=== PATIENT | male | born 1985 | race Two or more races ===

== ENCOUNTER 2024-07-04 08:23 | Outpatient (OUT) | payer OTHER, SELFPAY ==
--- NOTE | 2024-07-04 09:13 | PM.PRESUREVA ---
History of Present Illness History of Present Illness Chief complaint: Right ureteral stone Narrative: Please see HPI and ROS From Dr. Bertrand on date of service July 02, 2024. PFSH PFSH Medical History (Updated 07/04/24 @ 09:15 by Alondra Rolle) Kidney stones ?N20.0 - Calculus of kidney (ICD-10) Hematuria ?R31.9 - Hematuria, unspecified (ICD-10) Seasonal allergies ?J30.2 - Other seasonal allergic rhinitis (ICD-10) Nausea ?R11.0 - Nausea (ICD-10) Surgical History (Updated 07/04/24 @ 08:57 by Alondra Rolle) History of hernia repair ?Z98.890 - Other specified postprocedural states (ICD-10) ?Z87.19 - Personal history of other diseases of the digestive system (ICD-10) History of wisdom tooth extraction ?K08.409 - Partial loss of teeth, unspecified cause, unspecified class (ICD-10) Family History (Updated 07/04/24 @ 08:57 by Alondra Rolle) Other Family history of DVT Family history of coronary artery disease Family history of diabetes mellitus Family history of hypertension Family history of renal failure Family history of stroke Social History (Updated 07/04/24 @ 08:49 by Alondra Rolle) Within the past year, how often did you have a drink containing alcohol: monthly or less Smoking status: Former smoker Non-prescribed substance use: denies use Previous [facility] history: [employer] Highest level of school completed/degree received: high school graduate Meds Home Medications and Allergies Home Medications ?Medication ?Instructions ?Recorded ?Confirmed ?Type naproxen 500 mg tablet 500 mg PO Q6H PRN pain 07/04/24 07/04/24 History tamsulosin 0.4 mg capsule 0.8 mg PO Q24H 07/04/24 07/04/24 History Allergies Allergy/AdvReac Type Severity Reaction Status Date / Time Penicillins Allergy Mild Hives Verified 07/04/24 08:46 Exam Narrative Exam Narrative: Constitutional: Awake, alert, comfortable, well-appearing, nontoxic, interactive, vital signs as charted Head: Normocephalic, atraumatic Eyes: Conjunctiva and lids normal to inspection, pupils normal ENT: Tympanic membranes pearly lehman, nonerythematous, noninjected, naris patent, posterior oropharynx clear, oral mucosa moist Neck: Supple, normal appearance, normal range of motion, no meningeal signs, no lymphadenopathy, no bruit Respiratory: No respiratory distress, breath sounds clear Cardiovascular: Regular rate and rhythm, strong and regular heart tones Abdomen: Nontender, normal bowel sounds, soft, no CVA tenderness on examination today Musculoskeletal: Normal gait, no swelling or edema Skin: No rashes or induration, no lesions, only visible skin inspected Neuro: No neurological deficits, normal sensation Psychiatric: Oriented ?3, normal affect Assessment and Plan Assessment and Plan (1) Right ureteral stone: Plan Right ESWL, possible cystoscopy, laser, basket get and possible right stent placement this is scheduled with Dr. Bertrand on July 05, 2024
[2024-07-04 10:01] LABS: INR 0.93; Partial Thromboplastin Time 35.9 sec (22.3-36.2); Prothrombin Time 9.9 sec (9.0-11.6)
== END 2024-07-04 08:24 | disposition home or self-care (01) ==
LOC: PST 08:29
PROVIDERS: Visit Provider Urology
DX: Z01.812 Encounter for preprocedural laboratory examination (principal); Z01.818 Encounter for other preprocedural examination; N20.1 Calculus of ureter
CPT/HCPCS: 36415; 85610; 85730; G0463

== ENCOUNTER 2024-07-05 10:34 | Day surgery (SDC) | payer OTHER, SELFPAY ==
[2024-07-04 08:50] VITALS: PULSE 70; TEMP 36.8; O2SAT 98; BMI 30.3
--- NOTE | 2024-07-05 09:45 | XR_ITS ---
The [address] [address] Patient Name: PILLO COLLINS MRN: [id number] date: 1985 Sex: M Assigned Patient Location: [facility] Current Patient Location: [facility] Accession/Order Number: [id number] Exam Date: 07/05/2024 10:45 Report Date: 07/05/2024 11:01 At the request of: ELVIRA CUNNINGHAM Procedure: XR abdomen 1V EXAMINATION: XR abdomen 1V HISTORY: kidney stones COMPARISON: No relevant comparison available. FINDINGS: KIDNEY/URETER - RIGHT: Multiple nephroliths measuring up to 6 mm. 6.7 mm calcification projects of the right L3 transverse process on image 1 KIDNEY/URETER - LEFT: Punctate nephrolith lower pole measuring 3 mm PELVIS: No visible ureteral calcifications. Any visible calcifications favor phleboliths. BOWEL: Unobstructed bowel gas pattern BONES: No acute abnormality. OTHER: Negative. No abnormal gaseous collections. XR/XR abdomen 1V IMPRESSION: Bilateral nephrolithiasis with suspected 6.7 mm right ureterolith Electronically authenticated by: ANDRE MCCABE Date: 07/05/2024 11:01
--- OUTSIDE RECORDS SUMMARY | 2024-07-05 10:52 | XMS_ITS | CCD ---
Author Organization [facility] Care Team Providers Care Supervisor Accounting Clerks Name Role Phone Nitin PAYNE Primary Care Physician Porter Watkins Attending Unavailable Donny BERTRAND Attending Unavailable Porter Watkins Attending Unavailable Donny BERTRAND Attending Unavailable Allergies Allergy Classification Reported Allergen(s) Allergy Type Date of Onset Reaction(s) Facility (5 sources) Penicillins; Translations: [penicillins] Drug allergy [facility] Medications Current Medications Medication Drug Class(es) Dates Sig (Normalized) Sig (Original) acetaminophen 325 mg / HYDROcodone bitartrate 5 mg oral tablet (3 sources) Opioid Agonist Start: 09-25-2015 Hermosa 325 mg-5 mg oral tablet 1 tab(s), Oral, q4hr for pain, 15 tab(s), Refill(s) 0 Start Date: 09/25/15 Status: Ordered clindamycin 300 mg oral capsule (2 sources) Lincosamide Antibacterial Start: 09-23-2022 End: 09-30-2022 take 1 capsule by mouth every six hours clindamycin 300 mg oral cap 300 mg = 1 cap(s), Oral, q6hr, X 7 day(s), # 28 cap(s), Refills(s) 0, Pharmacy: [facility], 180, cm, 09/23/22 16:58:00 EST, Height/Length Dosing, 98, kg, 09/23/22 16:58:00 EST, Weight Dosing Start Date: 09/23/22 Stop Date: 09/30/22 Status: Ordered Start: 04-09-2022 End: 04-16-2022 take 1 capsule by mouth three times daily clindamycin 300 mg oral cap 300 mg = 1 cap(s), Oral, TID, X 7 day(s), # 21 cap(s), Refills(s) 0, Pharmacy: [facility], 186, cm, 04/09/22 23:21:00 EDT, Height/Length Dosing, 102.3, kg, 04/09/22 23:21:00 EDT, Weight Dosing Start Date: 04/09/22 Stop Date: 04/16/22 Status: Ordered indomethacin 25 mg oral capsule (3 sources) Nonsteroidal Anti-inflammatory Drug Start: 10-08-2021 take 1 capsule by mouth three times daily as needed for pain indomethacin 25 mg Cap 25 mg = 1 cap(s), Oral, TID, PRN for gout pain, # 30 cap(s), Refills(s) 0, Pharmacy: [facility], 180, cm, 10/08/21 11:34:00 EDT, Height/Length Dosing, 100, kg, 10/08/21 11:34:00 EDT, Weight Dosing Start Date: 10/08/21 Status: Ordered naproxen 500 mg oral tablet (8 sources) Nonsteroidal Anti-inflammatory Drug Start: 08-28-2021 End: 07-07-2024 take 1 tablet by mouth twice daily as needed for pain naproxen 500 mg Tab 500 mg = 1 tab(s), Oral, BID, PRN Pain, X 7 day(s), # 14 tab(s), Refills(s) 0, Pharmacy: [facility], 184, cm, 06/30/24 19:00:00 EST, Height/Length Dosing, 100.8, kg, 06/30/24 19:00:00 EST, Weight Dosing Start Date: 06/30/24 Stop Date: 07/07/24 Status: Ordered tamsulosin hydrochloride 0.4 mg oral capsule (1 source) alpha-Adrenergic Eve Start: 06-30-2024 take 1 capsule by mouth once daily Flomax 0.4 mg Cap 0.4 mg = 1 cap(s), Oral, Daily, # 10 cap(s), Refills(s) 0, Pharmacy: [facility], 184, cm, 06/30/24 19:00:00 EST, Height/Length Dosing, 100.8, kg, 06/30/24 19:00:00 EST, Weight Dosing Start Date: 06/30/24 Status: Ordered Zofran ODT 4 mg Tab-Dis (4 sources) Start: 06-30-2024 take 1 tablet by mouth every eight hours as needed for nausea Zofran ODT 4 mg Tab-Dis 4 mg = 1 tab(s), Oral, q8hr, PRN Nausea/Vomiting, # 12 tab(s), Refills(s) 0, Pharmacy: [facility], 184, cm, 06/30/24 19:00:00 EST, Height/Length Dosing, 100.8, kg, 06/30/24 19:00:00 EST, Weight Dosing Start Date: 06/30/24 Status: Ordered Start: 09-25-2015 take 1 tablet by courtney th every six hours as needed for nausea Zofran ODT 4 mg Tab-Dis 4 mg = 1 tab(s), Oral, q6hr, PRN Nausea, # 5 tab(s), Refills(s) 0 Start Date: 09/25/15 Status: Ordered Problems Problem Classification Problem Date Documented Da te Episodic/Chronic Calculus of urinary tract (1 source) Ureteric stone; Translations: [Calculus of ureter] Onset: 06-30-2024 Episodic Disorders of teeth and jaw (2 sources) Disorder of teeth AND/OR supporting structures; Translations: [Other specified disorders of teeth and supporting structures] Onset: 04-09-2022 Episodic Other nutritional; endocrine; and metabolic disorders (1 source) Obese class I; Translations: [Body mass index (BMI) 30.0-30.9, adult] Onset: 09-23-2022 Chronic Results Test Name Value Interpretation Reference Range Facility Ambulatory Visit Summaryon 1 09-02-2023 Ambulatory Visit Summary Ambulatory Visit Summary STEPHEN COLLINS :1985 Visit Date:07/02/2024 Ambulatory Visit Instructions Your Diagnosis Ureteral stone with hydronephrosis Kidney stone Flank pain Your Care Team Attending Physician - OCTAVIO HADLEY, Donny Trejo Primary Care Physician - KERRY HADLEY, Nitin This Is Your Medications List acetaminophen-hydroc odone (Hermosa 325 mg-7.5 mg oral tablet) Contact prescribing physician if questions or concerns naproxen (naproxen 500 mg Tab) ondansetron (Zofran ODT 4 mg Tab-Dis) tamsulosin (Flomax 0.4 mg Cap) Procedures Performed Right inguinal hernia. Discharge Vitals Temperature (Oral) 37 ???C Heart Rate (Peripheral) 79 Respiratory Rate 16 Blood Pressure 137/89 Height 184 cm Height 72 in Weight 101.4 kg Weight 223.548 lb BMI 29.95 What to do next You Need to Schedule the Following Appointments Follow Up with OCTAVIO HADLEY, NATALYA Evangelista When: Where: [facility] [address] , [place] [address] [phone] Medications What How Much When Instructions New acetaminophen-hydroc odone (Hermosa 325 mg-7.5 mg oral tablet) 1 Tablets By Mouth Every 4 hours as needed for for pain Pickup at [facility] Unchanged naproxen (naproxen 500 mg Tab) 1 Tablets By Mouth 2 times a day as needed for Pain Duration: 7 Days Contact prescribing physician if questions or concerns Unchanged ondansetron (Zofran ODT 4 mg Tab-Dis) 1 Tablets By Mouth Every 8 hours as needed for Nausea/Vomiting Contact prescribing physician if questions or concerns Unchanged tamsulosin (Flomax 0.4 mg Cap) 1 Capsules By Mouth Every day Contact prescribing physician if questions or concerns Pharmacy Information [facility]: [address] [place], [place] [phone] Allergies penicillins Problems Ongoing - Any problem that you are currently receiving treatment for. Flank pain Kidney stone Patient Survey You may receive a survey via text or e-mail asking about your office visit. Please share your experience with us by completing your survey. We appreciate your feedback and thank you for choosing us for your care. Education Materials Laser Therapy for Kidney Stones, Care After After laser therapy for kidney stones, it is common to have: ??? Pain. ??? A burning feeling when you pee (urinate). ??? Small amounts of blood in your pee (urine). ??? A need to pee a lot. ??? Parts of the kidney stone in your pee. ??? Mild discomfort in your back when you pee. You may have this if you had a small mesh tube (stent) placed during the procedure. Follow these instructions at home: Medicines ??? Take mqag-dkx-eznmwdx and prescription medicines only as told by your health care provider. ??? If you were prescribed antibiotics, take them as told by your provider. Do not stop using the antibiotic even if you start to feel better. ??? Ask your provider if the medicine prescribed to you: ? Requires you to avoid driving or using machinery. ? Can cause constipation. You may need to take these actions to prevent or treat constipation: ? Drink enough fluid to keep your pee pale yellow. ? Take nobd-wly-pajjwyq or prescription medicines. ? Eat foods that are high in fiber, such as beans, whole grains, and fresh fruits and vegetables. ? Limit foods that are high in fat and processed sugars, such as fried or sweet foods. Activity ??? If you were given a sedative during the procedure, it can affect you for several hours. Do not drive or operate machinery until your provider says that it is safe. ??? Return to your normal activities as told by your provider. Ask your provider what activities are safe for you. General instructions ??? Your provider may recommend that you drink a lot of water for a few hours after your procedure. If you have heart or kidney disease, ask your provider how much you should drink. ??? You may be asked to strain your pee to collect any stone pieces that you pass. Your provider may have these pieces tested. ??? Do not take baths, swim, or use a hot tub until your provider approves. Ask your provider if you may take warm baths to soothe the burning. ??? Keep all follow-up visits. If you have a stent, you will need to go back to your provider to have it removed. Your provider may give you more instructions. Make sure you know what you can and cannot do. Contact a health care provider if: ??? You have pain or a burning feeling that lasts for more than 2 days. ??? You feel nauseous. ??? You vomit more and more often. ??? You have trouble peeing. ??? You have pain that gets worse or does not get better with medicine. ??? You have a fever or shaking chills. Get help right away if: ??? You cannot pee, even when your bladder feels full. ??? You faint. ??? You have chest pain, shortness of akira (more content not included)... Normal [facility] Provider Letteron 07-02-2024 Provider Letter Provider Letter July 02, 2024 STEPHEN COLLINS [address] [place] [id number] : 1985 To Whom It May Concern, Please excuse above patient from work. Date of Illness: From: 07/05/24 To: 07/06/24 May Return to Work On: 07/09/24 Restrictions: NONE Comments: Patient is having a surgical procedure on 07/05/[address] Bertrand. Sincerely, [facility] Urology Office/Clinic Noteon 07-02-2024 Urology Office/Clinic Note Urology Office/Clinic Note Chief Complaint ER f/u HPI Staff 38yr old male pt here for ER f/u. Pt was seen on 06/30/24 for right flank pain w/ nausea and vomiting. CT showed 8mm calculus in right proximal ureter & mild right hydronephrosis. Given Flomax 0.4mg daily & naproxen upon discharge. Pt inquiring if a stronger pain medication could be sent in because naproxen does not help the pain when it is severe. Also says he believes stone might have moved to somewhere that is not as severe because pain has improved since this weekend. Pt unable to provide urine sample at this time. Will try before end of appt. Dysuria: denies Incomplete bladder emptying: denies Hematuria: not today, but yesterday thinks he might have had some Frequency: about every 2-3hrs Urgency: denies Nocturia: denies Stream: good stream Leaking: denies Post void dripping: denies Wearing pads/ Depends: denies Urge incontinence: denies Stress incontinence: denies Incontinence without Sensory Awareness: denies Abdominal pain: not now, but was having pain radiating from right flank to right abdomen Flank pain: rates pain today as 2/10 on right side Sexual complaints: _ History of Present Illness Tests reviewed: reviewed ER notes & imaging & labs I have reviewed the previous health record information and history for this patient from external providers. I have reviewed and verified the staff HPI to be accurate for this encounter. Review of Systems PHQ Score Initial Depression Screen Score: 3 SCORE Detailed Depression Screen Score: 1 Total Depression Screen Score: 4 ROS - Provider Constitutional: denies weight loss, denies hot flashes. Eyes: denies eye problems. Gastrointestinal: denies nausea, denies vomiting. Cardiovascular: denies chest pain or angina. Integumentary: no dryness Musculoskeletal: denies musculoskeletal symptoms. ENMT: denies otolaryngeal symptoms. Respiratory: no shortness of breath. Heme/Lymph: denies easy bleeding tendency, denies easy bruising tendency. Psychiatric: no confusion, no anxiety. Genitourinary: See HPI. Physical Exam Vitals & Measurements T: 37 ???C(Oral) HR: 79(Peripheral) RR: 16 BP: 137/89 HT: 72 in HT: 184 cm WT: 101.4 kg WT: 223.548 lb BMI: 29.95 General Appearance: alert, no distress, well nourished, well developed male. Flank Pain: moderate on right. Assessment/Plan Stephen is a 38 yo male new pt here for f/u to ER due to right ureteral stone. 1. Ureteral stone with hydronephrosis (N13.2: Hydronephrosis with renal and ureteral calculous obstruction) [facility] [place] due to R flank pain and H&V. Given Naproxen, Flomax, and Zofran. Renal fxn - BUN 11, Cr 0.9, GFR 11 CT AP wo con 06/30/[place] [facility] [place] 8 [place] calculus in R proximal ureter. Mild R hydro. Additional nonobstructing bilateral renal calculi w/ at least five on R measuring up to 8mm, and at least two small calculi on L measuring up to 3mm. No L hydro. Reviewed imaging results. Has had ongoing right flank pain. Not curently in pain. Taking Naproxen as needed. Was not given pain meds in ER. Does not prefer to proceed with MET. Discussed operative intervention including extracorporeal shockwave lithotripsy vs ureteroscopy with laser lithotripsy/stone basket extraction possible stent. Risks/benefits of each were discussed. If a stent is placed, pt understands this is not permanent and needs to be removed or exchanged within 3 months to prevent encrustation, infection, permanent renal damage and need for more invasive procedures. Recommended to proceed with ESWL first and then ureteroscopy if stone does not pass after ESWL. Pt amenable to proceed. -Take Hermosa 325mg-7.5mg #10 as needed for pain. Rx sent to [facility]. -Increase fluid intake -Strain urine -Will schedule Right ESWL, Cysto/ureteroscopy/l aser/basket and possible R stent placement. The procedure risks, benefits, details and treatment alternatives have been discussed with the patient. These include blood urine, infection, bleeding around the kidney, kidney bruising, inability to break up the stone, need for blood transfusion, stent pain, injury to the ureter, bladder irritation from the stent, flank pain, and need for additional procedures, among others. Full informed consent has been obtained. Will order General anesthesia. 2. Kidney stone (N20.0: Calculus of kidney) Hx of kidney stone passage 4 yrs ago, ~3-4mm. CT AP wo con 06[place]30/[place] [facility] [place] Nonobstructing bilateral renal calculi w/ at least five on R measuring up to 8mm, and at least two small calculi on L measuring up to 3mm. No L hydro. -See #1 3. Flank pain (R10.9: Unspecified abdominal pain) See #1. Follow-up With When Contact Information Donny BERTRAND MD, [facility] [address], [place] [phone] Additional Instructions: sched R ESWL Patient Education Laser Therapy for Kidney Stones, Care After Laser Therapy for Kidney Stones IJazmine, personally scribed for Dr. Moreno (more content not included)... Normal [facility] Comment on above: Result Comment: Elec tronically Signed By: Donny BERTRAND MD\.br\Date and Time Signed: 07/02/24 17:13 EST\.br\Electronically Co-Signed By: Jazmine Lopes\.br\Date and Time Co-Signed: 07/02/24 17:[address] Abdomen/Pelvis w/o Contra sy 07-01-2024 CT Abdomen/Pelvis w/o Contrast Exam Date/Time: 06/30/2024 19:31 EST Reason for Exam: ABDOMINAL PAIN, ACUTE, NONLOCALIZED;Other (please specify) Report IMPRESSION: Mildly obstructing 8 mm calculus right proximal ureter. Additional nonobstructing bilateral renal calculi. HISTORY: Right-sided flank pain. Nausea and vomiting. History of kidney stones. TECHNIQUE: Non-IV contrast imaging of the abdomen and pelvis was performed. Unenhanced imaging is limited for the evaluation of some intra-abdominal and pelvic pathology. Unless otherwise stated, incidental findings in this report do not require further routine follow-up imaging. All CT scans at this facility use dose modulation, iterative reconstruction, and/or weight based dosing when appropriate to reduce radiation dose to as low as reasonably achievable. COMPARISON: 09/25/2015. RESULT: Liver: Unremarkable. Biliary: Gallbladder unremarkable. Pancreas: Unremarkable. Spleen: No splenomegaly. Adrenals: No mass. Kidneys and urinary tract: 8 mm calculus in the right proximal ureter. Mild right hydronephrosis. Additional nonobstructing bilateral renal calculi with at least 5 on the right measuring up to 8 mm, and at least 2 small calculi on the left measuring up to 3 mm. No left hydronephrosis. No suspicious lesions of the unenhanced kidneys. GI Tract: No bowel dilation. Normal appendix. No evidence for diverticulitis. Lymph Nodes: No lymphadenopathy. Mesentery/peritoneum /retroperitoneum: No ascites or mass. Vasculature: No abdominal aortic or iliac artery aneurysm. Pelvis: No significant free fluid. Bladder decompressed. Trace fat left inguinal ring. Report Bones/Soft Tissues: No acute osseous findings. Lower thorax: Unremarkable. Ordering Provider: Porter Watkins FINAL REPORT Dictated: 07/01/2024 9:19 am Bernabe Freedman MD Signed (Electronic Signature): 07/01/2024 9:19 am Signed by: Bernabe Freedman MD Transcribed by: JACQUI Technologist: COREY Technical Comments Rectal Contrast Given? No Oral contrast amount in ml's: 0 Normal [facility] BMPon 06-30-2024 Anion gap [Moles/Vol] 10 mmol/L Normal 6-16 [facility] Comment on above: Performed By: #### 2 [id number] #### [facility] [address] [place] [address] Calcium [Mass/Vol] 9.3 mg/dL Normal 8.9-11.1 [facility] Comment on above: Performed By: #### 2 [id number] #### [facility] [address] [place] [address] Chloride [Moles/Vol] 103 mmol/L Normal 101-111 [facility] Comment on above: Performed By: #### 2 [id number] #### [facility] [address] [place] [address] CO2 [Moles/Vol] 29 mmol/L Normal 21-31 [facility] Comment on above: Performed By: #### 2 [id number] #### [facility] [address] [place] [address] Creatinine [Mass/Vol] 0.9 mg/dL Normal 0.5-1.3 [facility] Comment on above: Performed By: #### 2 [id number] #### [facility] [address] [place] [address] Glucose [Mass/Vol] 102 mg/dL Normal 55-199 [facility] Comment on above: Performed By: #### 2 [id number] #### [facility] [address] [place] [address] Potassium [Moles/Vol] 4.3 mmol/L Normal 3.5-5.3 [facility] Comment on above: Performed By: #### 2 [id number] #### [facility] [address] [place] [address] Sodium [Moles/Vol] 138 mmol/L Normal 135-145 [facility] Comment on above: Performed By: #### 2 [id number] #### [facility] [address] [place] [address] Urea nitrogen [Mass/Vol] 11 mg/dL Normal 5-21 [facility] Comment on above: Performed By: #### 2 [id number] #### [facility] [address] [place] [address] Urea nitrogen/Creatinine [Mass ratio] 12 No Units Normal 10-20 [facility] Comment on above: Performed By: #### 2 850491 #### [facility] [address] [place] [address] CBC w/ Auto Diffon 4 Basophils/100 WBC (Bld) 0.3 % Normal 0.0-2.0 [facility] Comment on above: Performed By: #### 2 [id number] #### [facility] [address] [place] [address] Basophils/Leukocytes Auto (Bld) [Pure # fraction] 0.0 E9/L Normal 0.0-0.2 [facility] Comment on above: Performed By: #### 2 [id number] #### [facility] [address] [place] [address] Eosinophils (Bld) [#/Vol] 0.0 E9/L Normal 0.0-0.5 [facility] Comment on above: Performed By: #### 2 [id number] #### [facility] [address] [place] [address] Eosinophils/100 WBC (Bld) 0.4 % Normal 0.0-8.0 [facility] Comment on above: Performed By: #### 2 246154 #### [facility] [address] [place] [address] Erythrocyte distribution width (RBC) [Ratio] 13.4 % Normal 10.9-14.2 [facility] Comment on above: Performed By: #### 2 [id number] #### [facility] [address] [place] [address] Hematocrit (Bld) [Volume fraction] 44.5 % Normal 37.7-49.0 [facility] Comment on above: Performed By: #### 2 [id number] #### [facility] [address] [place] [address] Hemoglobin (Bld) [Mass/Vol] 15.8 g/dL Normal 13.5-17.5 [facility] Comment on above: Performed By: #### 2 227062 #### [facility] [address] [place] [address] Lymphocytes (Bld) [#/Vol] 0.8 E9/L Low 1.0-4.0 [facility] Comment on above: Performed By: #### 2 [id number] #### [facility] [address] [place] [address] Lymphocytes/100 WBC (Bld) 7.9 % Low 14.0-50.0 [facility] Comment on above: Performed By: #### 2 [id number] #### [facility] [address] [place] [address] MCH (RBC) [Entitic mass] 30.4 pg Normal 27.0-34.0 [facility] Comment on above: Performed By: #### 2 [id number] #### [facility] [address] [place] [address] MCHC (RBC) [Mass/Vol] 35.6 g/dL Normal 31.4-36.0 [facility] Comment on above: Performed By: #### 2 684131 #### [facility] [address] [place] [address] MCV (RBC) [Entitic vol] 85.6 fL Normal 80.0-100.0 [facility] Comment on above: Performed By: #### 2 766189 #### [facility] [address] [place] [address] Monocytes (Bld) [#/Vol] 0.6 E9/L Normal 0.2-1.0 [facility] Comment on above: Performed By: #### 2 072715 #### [facility] [address] [place] [address] Neutrophils (Bld) [#/Vol] 8.4 E9/L High 2.0-7.5 [facility] Comment on above: Performed By: #### 2 [id number] #### [facility] [address] [place] [address] Neutrophils/100 WBC (Bld) 85.3 % High 36.0-75.0 [facility] Comment on above: Performed By: #### 2 557000 #### [facility] [address] [place] [address] Platelet mean volume (Bld) [Entitic vol] 9.1 fL Normal 6.4-10.8 [facility] Comment on above: Performed By: #### 2 [id number] #### [facility] [address] [place] [address] Platelets (Bld) [#/Vol] 187.0 E9/L Normal 150.0-500.0 [facility] Comment on above: Performed By: #### 2 [id number] #### [facility] [address] [place] [address] RBC (Bld) [#/Vol] 5.2 E12/L Normal 4.3-5.9 [facility] Comment on above: Performed By: #### 2 [id number] #### [facility] [address] [place] [address] WBC corrected for nucl RBC Auto (Bld) [#/Vol] 9.8 E9/L Normal 4.0-11.0 [facility] Comment on above: Performed By: #### 2 [id number] #### [facility] [address] [place] [address] CHEMISTRYOrdered By: SYSTEM SYSTEM on 06-30-2024 Albumin [Mass/Vol] 4.3 g/dL Normal 3.3 - 5.0 gm/dL [facility] Albumin/Globulin [Mass ratio] 1.7 {ratio} Normal 1.1 - 2.2 [facility] ALP [Catalytic activity/Vol] 61 [iU]/d Normal 21 - 98 Int._Unit/L [facility] ALT No additional P-5'-P [Catalytic activity/Vol] 17 [iU]/d Normal 6 - 46 Int._Unit/L [facility] Anion gap [Moles/Vol] 10 mmol/L Normal 6 - 16 mEq/L R [facility] Chem AST [Catalytic activity/Vol] 13 [iU]/d Normal 5 - 43 Int._Unit/L [facility] Bilirubin [Mass/Vol] 0.5 mg/dL Normal 0.0 - 1 .1 mg/dL [facility] Bilirubin.direct [Mass/Vol] 0.1 mg/dL Normal 0.0 - 0.4 mg/dL [facility] Bilirubin.indirect [Mass or moles/Vol] 0.4 mg/dL Normal 0.1 - 0.9 mg/dL [facility] Calcium [Mass/Vol] 9.3 mg/dL Normal 8.9 - 11. 1 mg/dL [facility] Chloride [Moles/Vol] 103 mmol/L Normal 101 - 1 11 mmol/L [facility] CO2 [Moles/Vol] 29 mmol/L Normal 21 - 31 mmol/L [facility] Creatinine [Mass/Vol] 0.9 mg/dL Normal 0.5 - 1.3 mg/dL [facility] eGFR 110 mL/min/1.73 m2 Normal >=59mL/mi n/1. 73 m2 [facility] Globulin (S) [Mass/Vol] 2.6 g/dL Normal 1.4 - 4.0 gm/dL [facility] Glucose [Mass/Vol] 102 mg/dL Normal 55 - 199 mg/dL [facility] Lipase [Catalytic activity/Vol] 29 U/L Normal 13 - 58 unit/L [facility] Potassium [Moles/Vol] 4.3 mmol/L Normal 3.5 - 5.3 mmol/L [facility] Protein [Mass/Vol] 6.9 g/dL Normal 6.0 - 7.8 gm/dL [facility] Sodium [Moles/Vol] 138 mmol/L Normal 135 - 145 mmol/L Remisol Chem Urea nitrogen [Mass/Vol] 11 mg/dL Normal 5 - 21 mg/dL Remisol Chem Urea nitrogen/Creatinine [Mass ratio] 12 mg/mg Normal 10 - 20 Remisol Chem ED Clinical Summaryon 2023 ED Clinical Summary ED Clinical Summary [place] [address] ED Clinical Summary Person Information Name: STEPHEN COLLINS Annabelle/[facility] Age: 38 Years : 1985 Sex: Male Language: Citizen Of [place] PCP: Nitin PAYNE MD Marital Status: Visit Id: Visit Reason: Vomiting; Nausea; Flank pain; LOWER BACK PAIN Speciality: Acuity: 3 Enc Type: Emergency Med Service: Emergency Arrival: 06/30/2024 18:47:09 Discharge: 06/30/2024 22:33:24 LOS: 000 03:46 Checkin: 06/30/2024 18:47:09 Checkout: 06/30/2024 22:33:24 Dispo Type: Home (Routine DC) EVENTS: Event Name Event Status Request Date/Time Start Date/Time Complete Date/Time Arrive Complete 06/30/2024 18:47:09 06/30/2024 18:47:09 06/30/2024 18:47:09 Document Home Meds Request 06/30/2024 18:47:09 Triage Complete 06/30/2024 18:47:09 06/30/2024 19:00:10 06/30/2024 19:00:10 Bed Assign Complete 06/30/2024 19:00:49 06/30/2024 19:00:49 06/30/2024 19:00:49 Dr Exam Complete 06/30/2024 19:00:49 06/30/2024 19:03:13 06/30/2024 19:03:13 RN Exam Complete 06/30/2024 19:00:49 06/30/2024 21:51:50 06/30/2024 21:51:50 CT Complete 06/30/2024 19:03:08 06/30/2024 19:10:29 06/30/2024 19:31:37 Pending Labs Complete 06/30/2024 19:03:08 06/30/2024 19:35:08 06/30/2024 20:06:48 Lab Complete 06/30/2024 19:03:08 06/30/2024 20:06:48 Patient Care Request 06/30/2024 19:03:08 Registration Complete 06/30/2024 19:03:13 06/30/2024 19:43:32 06/30/2024 19:43:32 Pending Labs Complete 06/30/2024 19:39:11 06/30/2024 19:39:11 06/30/2024 20:06:48 Lab Complete 06/30/2024 19:39:11 06/30/2024 19:39:11 06/30/2024 20:06:48 Meds Admin Complete 06/30/2024 19:41:00 06/30/2024 20:08:12 Reg Complete Request 06/30/2024 19:43:32 Reg Bed Request Complete 06/30/2024 19:43:32 06/30/2024 19:43:32 06/30/2024 19:43:32 Discharge Complete 06/30/2024 22:11:30 06/30/2024 22:33:28 06/30/2024 22:33:28 Transfer Complete 06/30/2024 22:33:28 06/30/2024 22:33:28 06/30/2024 22:33:28 ADDRESS: [address] [place] [id number] PHYS DOC NOTES: MEDICAL INFORMATION: Prescriptions Given: New Medications [facility], [address] [place], [place] [id number], [phone] tamsulosin (Flomax 0.4 mg Cap) 1 Capsules By Mouth every day. Refills: 0. Medications to Continue Taking That Have Changed [facility], [address] [place], [place] [id number], [phone] START: naproxen (naproxen 500 mg Tab) 1 Tablets By Mouth 2 times a day as needed Pain for 7 Days. Refills: 0. START: ondansetron (Zofran ODT 4 mg Tab-Dis) 1 Tablets By Mouth every 8 hours as needed Nausea/Vomiting. Refills: 0. Other Medications START: naproxen (Naprosyn 500 mg Tab) 1 Tablets By Mouth 2 times a day. Refills: 0. START: naproxen (naproxen 500 mg Tab) 1 Tablets By Mouth 2 times a day as needed for pain. Refills: 0. START: ondansetron (Zofran ODT 4 mg Tab-Dis) 1 Tablets By Mouth every 6 hours as needed Nausea. Refills: 0. Medications to Continue with No Changes Other Medications acetaminophen-hydroc odone (Hermosa 325 mg-5 mg oral tablet) 1 Tablets By Mouth every 4 hours as needed for pain. Refills: 0. indomethacin (indomethacin 25 mg Cap) 1 Capsules By Mouth 3 times a day as needed for gout pain. Refills: 0. PATIENT EDUCATION INFORMATION: Instructions: Kidney Stones Follow up: With: Address: When: Donny [address]N [address], [address], [facility] [address] [place] [address] Business (1) [facility], [address] [place] [address] Business (1) Comments: Call for diagnosis based follow up With: Address: When: Nitin PAYNE [address] [place] [address] Business (1) In 3 days DIAGNOSIS: Ureterolithiasis Normal [facility] ED Note-Physicianon 06-30-20 ED Note-Physician ED Note-Physician Basic Information Time Seen: June Porter Eileen 06/30/2024 19:03 Chief Complaint pt presents ith c/o R sided flank pain, nausea and vomiting. history of kidney stones, denies any urinary sympmtoms. pt states symptoms began around 1630 today History of Present Illness HPI: Patient is a 38-year-old male with past medical history of previous kidney stones who presents the ED for right-sided flank pain. Patient states this started around 1630 this evening and has been waxing and waning since that time. He states that he has had some associated nausea and 1 episode of vomiting with this. He states that it feels somewhat like the last time he had a kidney stone 4 years ago. He denies any change in bowel movements. He denies fever or chills. He took gxka-skx-opvfcov ibuprofen earlier in the day. ROS: Pertinent review of systems conducted and is negative except as noted above. Physical exam: General: nontoxic appearing and in no distress HEENT: Mucous membranes moist Neuro: awake and alert Neck: supple, trachea midline Card: Heart regular rate and rhythm no murmur Resp: Lungs clear to auscultation no wheeze or rhonchi Abd: Soft and nondistended. No tenderness to palpation with no rebound or guarding. Right CVA tenderness. Ext: No gross deformity or edema Physical Exam Vitals & Measurements T: 36.5 ???C(Oral) HR: 61(Peripheral) RR: 18 BP: 157/92 SpO2: 100% HT: 184 cm WT: 100.8 kg BMI: 29.77 Medical Decision Making MEDICAL DECISION MAKING Number and Complexity of Problems Differential Diagnosis: [] [facility] Data External documents reviewed: N/A My EKG interpretation: Noted in chart if applicable My CT interpretation: N/A My X-ray interpretation: Noted in chart if applicable My Ultrasound interpretation: N/A Decision rules/scores evaluated: N/A Discussed with: N/A Treatment and Disposition ED Course: Patient is nontoxic-appearing no distress. He does have focal CVA tenderness on exam. We will obtain a CT of the abdomen and pelvis as well as blood work and urinalysis. Patient was given dose of Toradol and Zofran for symptoms. Work is overall reassuring. Urine shows blood but no signs of acute infection. CT of the abdomen pelvis shows a 8 mm calculus in the right proximal ureter with mild right hydronephrosis. On repeat exam the patient has significant improvement of his symptoms. We discussed the results of his workup. We discussed the plan of discharge with prescriptions for naproxen, Flomax, and Zofran as needed. We will give him follow-up with Dr. Bertrand who is on-call for urology will call first thing on Tuesday morning to get the next fillable appointment. Discussed return cautions. Patient states understanding agreement with plan was discharged in stable condition. Shared decision making: As above Code status: N/A Assessment/Plan Ureterolithiasis (N20.1: Calculus of ureter) Orders: ketorolac, 15 mg = 1 mL, Injection, IV Push, Once, Stop date 06/30/24 19:40:00 EST, STAT, Start date 06/30/24 19:40:00 EST, 06/30/24 19:40:00 EST naproxen, 500 mg = 1 tab(s), Oral, BID, PRN Pain, X 7 day(s), # 14 tab(s), Refills(s) 0, Pharmacy: [facility], 184, cm, 06/30/24 19:00:00 EST, Height/Length Dosing, 100.8, kg, 06/30/24 19:00:00 EST, Weight Dosing ondansetron, 4 mg = 2 mL, Injection, IV Push, Once, Stop date 06/30/24 19:40:00 EST, STAT, Start date 06/30/24 19:40:00 EST, 06/30/24 19:40:00 EST ondansetron, 4 mg = 1 tab(s), Oral, q8hr, PRN Nausea/Vomiting, # 12 tab(s), Refills(s) 0, Pharmacy: [facility], 184, cm, 06/30/24 19:00:00 EST, Height/Length Dosing, 100.8, kg, 06/30/24 19:00:00 EST, Weight Dosing tamsulosin, 0.4 mg = 1 cap(s), Oral, Daily, # 10 cap(s), Refills(s) 0, Pharmacy: [facility], 184, cm, 06/30/24 19:00:00 EST, Height/Length Dosing, 100.8, kg, 06/30/24 19:00:00 EST, Weight Dosing Basic Metabolic Panel CBC w/ Auto Diff CT Abdomen/Pelvis w/o Contrast eGFR Hepatic Function Panel Lipase Level Saline Lock Insert UA with Cult Rflx Medications Administered Given ketorolac 15 mg/mL Inj, 15 mg, IV Push Zofran 4 mg/2 mL Injection, 4 mg, IV Push Disposition Plan Discharge Prescription List Prescriptions Flomax 0.4 mg Cap, 0.4 mg= 1 cap(s), Oral, Daily naproxen 500 mg Tab, 500 mg= 1 tab(s), Oral, BID, PRN Zofran ODT 4 mg Tab-Dis, 4 mg= 1 tab(s), Oral, q8hr, PRN Follow-up With When Contact Information Donny BERTRAND [address] [place] [phone]- Business (1) [facility] [address] [place] [address]- Business (1) Additional Instructions: Call for diagnosis based follow up Nitin PAYNE In 3 days [address] [place] [address]- Business (1) Additional Instructions: Patient Education Kidney Stones Problem List/Past Medical History Ongoing No chronic problems Historical No qualifying data Procedure/Surgical (more content not included)... Normal [facility] Comment on above: Result Comment: Elec tronically Signed By: Porter Watkins DO\.br\Date and Time Signed: 06/30/24 22:13 EST ED Patient Summaryon 024 ED Patient Summary ED Patient Summary [address] [address] Patient Discharge Instructions Person Information Name: STEPHEN COLLINS Age: 38 Years Arrival Date: 06/30/2024 18:47:09 Discharge Diagnosis: Ureterolithiasis Primary Care Physician: Nitin PAYNE MD Provider Information Primary Provider: Porter Watkins DO [employer] Dean:None The exam and treatment you received in the Emergency Department were for an urgent problem and are not intended as complete care. It is important that you follow up with a doctor, nurse practitioner, or physician???s credentialing assistant for ongoing care. If your symptoms become worse or you do not improve as expected and you are unable to reach your usual health care provider, you should return to the Emergency Department. We are available 24 hours a day. STEPHEN COLLINS has been given the following list of patient education materials, prescriptions and follow-up instructions: Follow-up Instructions: With: Address: When: Donny BERTRAND [address] [place] [address], [address], [address] [address] Business (1) [facility], [address] [place] [address] Business (1) Comments: Call for diagnosis based follow up With: Address: When: Nitin PAYNE [address] [place] [address] Business (1) In 3 days In the event that this physician does not participate in your insurance network, please consult with your insurance company to find a nearby participating provider. Patient Education Materials: Kidney Stones A MESSAGE TO ALL PATIENTS REGARDING OPIOIDS PRESCRIPTION OPIOIDS: WHAT YOU NEED TO KNOW Prescription opioids can be used to help relieve htsllbxh-lq-kpljln pain and are often prescribed following a surgery or injury, or for certain health conditions. These medications can be an important part of the treatment but also come with serious risks. It is important to work with your healthcare provider to make sure you are getting the safest, most effective care. WHAT ARE THE RISKS AND SIDE EFFECTS OF OPIOID USE? Prescription opioids carry serious risks of addiction and overdose, especially with prolonged use. An opioid overdose, often marked by slowed breathing, can cause sudden . The use of prescription opioids can have a number of side effects as well, even when taken as directed: ??? Tolerance???meaning you might need to take more of the medication for the same pain relief ??? Physical dependence???meaning you have symptoms of withdrawal when a medication is stopped ??? Increased sensitivity to pain ??? Constipation ??? Nausea, vomiting, and dry mouth ??? Sleepiness and dizziness ??? Confusion ??? Depression ??? Low levels of testosterone that can result in lower sex drive, energy, and strength ??? Itching and sweating RISKS ARE GREATER WITH: ??? History of drug misuse, substance use disorder, or overdose ??? Mental health conditions (such as depression or anxiety) ??? Sleep apnea ??? Older age (65 years and older) ??? Avoid alcohol while taking prescription opioids. Also, unless specifically advised by your health care provider, medications to avoid include: ??? Benzodiazepines (such as Xanax or Valium) ??? Muscle relaxants (such as Soma or Flexeril) ??? Hypnotics (such as Ambien or Lunesta) ??? Other prescription opioids KNOW YOUR OPTIONS Talk to your health care provider about ways to manage your pain that don???t involve prescription opioids. Some of these options may actually work better and have fewer risks and side effects. Options may include: ??? Pain relievers such as acetaminophen, ibuprofen, and naproxen ??? Some medication that are also used for depression or seizures ??? Physical therapy and exercise ??? Cognitive behavioral therapy, a psychological, goal-directed approach, in which patients learn how to modify physical, behavioral, and emotional triggers of pain and stress. IF YOU ARE PRESCRIBED OPIOIDS FOR PAIN: ??? Never take opioids in greater amounts or more often than prescribed. ??? Follow up with your primary health care provider. o Work together to create a plan on how to manage your pain. o Talk about ways to help manage your pain that don???t involve prescription opioids. o Talk about any and all concerns and side effects. ??? Help prevent misuse and abuse o Never sell or share prescription opioids. o Never use another person???s prescription opioids. ??? Store prescription opioids in a secure place and out of reach of others (this may include visitors, children, friends, and family). ??? Safely dispose of unused prescription opioids: Find your community drug take-back program or your pharmacy mail-back program, or flush them down the toilet, following guidance from the Food and Drug Admin (more content not included)... Normal [facility] HEMATOLOGYOrdered By: SYSTEM SYSTEM on 06-30-2024 Basophils/100 WBC (Bld) 0.3 % Normal 0.0 - 2.0 % Remisol Heme Basophils/Leukocytes Auto (Bld) [Pure # fraction] 0.0 E9/L Normal 0.0 - 0.2 E9/L Remisol Heme Eosinophils (Bld) [#/Vol] 0.0 E9/L Normal 0.0 - 0.5 E9/L Remisol Heme Eosinophils/100 WBC (Bld) 0.4 % Normal 0.0 - 8.0 % Remisol Heme Erythrocyte distribution width (RBC) [Ratio] 13.4 % Normal 10.9 - 14.2 % Remisol Heme Hematocrit (Bld) [Volume fraction] 44.5 % Normal 37.7 - 49.0 % Remisol Heme Hemoglobin (Bld) [Mass/Vol] 15.8 g/dL Normal 13.5 - 17.5 gm/dL Remisol Heme Lymphocytes (Bld) [#/Vol] 0.8 E9/L Low 1.0 - 4.0 E9/L Remisol Heme Lymphocytes/100 WBC (Bld) 7.9 % Low 14.0 - 50.0 % Remisol Heme MCH (RBC) [Entitic mass] 30.4 pg Normal 27.0 - 34.0 pg Remisol Heme MCHC (RBC) [Mass/Vol] 35.6 g/dL Normal 31.4 - 36.0 gm/dL Remisol Heme MCV (RBC) [Entitic vol] 85.6 fL Normal 80.0 - 100.0 fL Remisol Heme Monocytes (Bld) [#/Vol] 0.6 E9/L Normal 0.2 - 1.0 E9/L Remisol Heme Monocytes/100 WBC (Bld) 6.1 % Normal 4.0 - 14.0 % Remisol Heme Neutrophils (Bld) [#/Vol] 8.4 E9/L High 2.0 - 7.5 E9/L Remisol Heme Neutrophils/100 WBC (Bld) 85.3 % High 36.0 - 75.0 % Remisol Heme Platelet mean volume (Bld) [Entitic vol] 9.1 fL Normal 6.4 - 10.8 fL Remisol Heme Platelets (Bld) [#/Vol] 187.0 E9/L Normal 150.0 - 500.0 E9/L Remisol Heme RBC (Bld) [#/Vol] 5.2 E12/L Normal 4.3 - 5.9 E12/L Rem[facility]e WBC corrected for nucl RBC Auto (Bld) [#/Vol] 9.8 E9/L Normal 4.0 - 11.0 E9/L Remisol Heme Hep Func Panelon 06-30-2024 Albumin [Mass/Vol] 4.3 g/dL Normal 3.3-5.0 [facility] Comment on above: Performed By: #### 2 [id number] #### [facility] [address] [place] [address] Albumin/Globulin (S) [Mass conc ratio] 1.7 Normal 1.1-2.2 [facility] Comment on above: Performed By: #### 2 [id number] #### [facility] [address] [place] [address] ALP [Catalytic activity/Vol] 61 Int._Unit/L Normal 21-98 [facility] Comment on above: Performed By: #### 2 [id number] #### [facility] [address] [place] [address] ALT No additional P-5'-P [Catalytic activity/Vol] 17 Int._Unit/L Normal 6-46 [facility] Comment on above: Performed By: #### 2 [id number] #### [facility] [address] [place] [address] AST [Catalytic activity/Vol] 13 Int._Unit/L Normal 5-43 [facility] Comment on above: Performed By: #### 2 [id number] #### [facility] [address] [place] [address] Bilirubin [Mass/Vol] 0.5 mg/dL Normal 0.0-1.1 [facility] Comment on above: Performed By: #### 2 [id number] #### [facility] [address] [place] [address] Bilirubin.direct [Mass/Vol] 0.1 mg/dL Normal 0.0-0.4 [facility] Comment on above: Performed By: #### 2 [id number] #### [facility] [address] [place] [address] Bilirubin.indirect [Mass or moles/Vol] 0.4 mg/dL Normal 0.1-0.9 [facility] Comment on above: Performed By: #### 2 [id number] #### [facility] [address] [place] [address] Globulin (S) [Mass/Vol] 2.6 g/dL Normal 1.4-4.0 [facility] Comment on above: Performed By: #### 2 [id number] #### [facility] [address] [place] [address] Protein [Mass/Vol] 6.9 g/dL Normal 6.0-7.8 [facility] Comment on above: Performed By: #### 2 [id number] #### [facility] [address] [place] [address] Lipase Levelon 06-30-2024 Lipase [Catalytic activity/Vol] 29 U/L Normal 13-58 [facility] Comment on above: Performed By: #### 2 [id number] #### [facility] [address] [place] [address] UA with Cult Rflxon 06-30-20 24 Bilirubin Ql (U) Negative Normal Negative [facility] Comment on above: Performed By: #### 4 [id number] #### [facility] [address] [place] [address] Clarity (U) Turbid Abnormal Clear [facility] Comment on above: Performed By: #### 4 [id number] #### [facility] [address] [place] [address] Color (U) Light-[place] Abnormal Yellow [facility] Comment on above: Result Comment: Micr oscopic readings are only performed on those samples that meet specific criteria set forth by [facility]. Performed By: #### 4 [id number] #### [facility] [address] [place] [address] Glucose Ql (U) Negative Normal Negative [facility] Comment on above: Performed By: #### 4 [id number] #### [facility] [address] [place] [address] Hemoglobin Auto test strip (U) [Mass/Vol] 3+ mg/dL Abnormal Negative [facility] Comment on above: Performed By: #### 4 [id number] #### [facility] [address] [place] [address] Ketones Auto test strip Ql (U) Negative Normal Negative [facility] Comment on above: Performed By: #### 4 [id number] #### [facility] [address] [place] [address] Leukocyte esterase Auto test strip Ql (U) Negative Normal Negative [facility] Comment on above: Performed By: #### 4 [id number] #### [facility] [address] [place] [address] Mucus Auto Ql (U) 1+ CD:[id number] Abnormal Negative [facility] Comment on above: Performed By: #### 4 [id number] #### [facility] [address] [place] [address] Nitrite Auto test strip Ql (U) Negative Normal Negative [facility] Comment on above: Performed By: #### 4 [id number] #### [facility] [address] [place] [address] pH (U) 8.0 [pH] Invalid Interpretation Code 5.0-9.0 [facility] Comment on above: Performed By: #### 4 [id number] #### [facility] [address] [place] [address] Protein Ql (U) 1+ mg/dL Abnormal Negative [facility] Comment on above: Performed By: #### 4 [id number] #### [facility] [address] [place] [address] RBC Ql (U) >75 Abnormal 0-3 [facility] Comment on above: Performed By: #### 4 [id number] #### [facility] [address] [place] [id number] Specific gravity (U) [Rel density] 1.018 Invalid Interpretation Code 1.005-1.030 [facility] Comment on above: Performed By: #### 4 [id number] #### [facility] [address] [place], [place] [id number] Urobilinogen (U) [Mass/Vol] Negative Normal Negative [facility] Comment on above: Performed By: #### 4 [id number] #### [facility] [address] [place], [place] [id number] WBC Auto (Urine sed) [#/Area] 0-5 Normal 0-5 [facility] Comment on above: Performed By: #### 4 [id number] #### [facility] [address] [place], [place] [id number] Type of Urine collection method Clean Catch Normal [facility] Comment on above: Performed By: #### 4 [id number] #### [facility] [address] [place], [place] [id number] URINALYSISOrdered By: SYSTEM SYSTEM on 06-30-2024 Bilirubin Ql (U) Negative Normal Negativemg/dL [facility] [place] Auto SS Clarity (U) Turbid *ABN* (06/30/24 7:31 PM) Invalid Interpretation Code Clear [facility] Auto SS Color (U) Light-[place] 1 *ABN* (06/30/24 7:31 PM) Invalid Interpretation Code Yellow [facility] Auto SS Comment on above: Interpretive Data: M icroscopic readings are only performed on those samples that meet specific criteria set forth by [facility]. Glucose Ql (U) Negative Normal Negativemg/dL [facility]A Auto SS Hemoglobin Auto test strip (U) [Mass/Vol] 3+ mg/dL Invalid Interpretation Code Negativemg/dL [facility] UA Auto SS Ketones Auto test strip Ql (U) Negative Normal Negativemg/dL [facility] UA Auto SS Leukocyte esterase Auto test strip Ql (U) Negative Normal NegativeLeu/u L [facility] UA Auto SS Mucus Auto Ql (U) 1+ graded/LPF Invalid Interpretation Code Negativegrade d/LPF [facility] UA Auto SS Nitrite Auto test strip Ql (U) Negative Normal Negativemg/dL [facility] UA Auto SS pH (U) 8.0 *NA* (06/30/24 7:31 PM) Invalid Interpretation Code 5.0 - 9.0 [facility] UA Auto SS Protein Ql (U) 1+ mg/dL Invalid Interpretation Code Negativemg/dL [facility] UA Auto SS RBC Ql (U) >75 graded/HPF Invalid Interpretation Code 0-3graded/HPF [facility] UA Auto SS Specific gravity (U) [Rel density] 1.018 *NA* (06/30/24 7:31 PM) Invalid Interpretation Code 1.005 - 1.030 [facility] UA Auto SS Urobilinogen (U) [Mass/Vol] Negative Normal Negativemg/dL [facility] UA Auto SS WBC Auto (Urine sed) [#/Area] 0-5 graded/HPF Normal 0-5graded/HPF [facility] UA Auto SS URINALYSISOrdered By: Porter mejia on 06-30-2024 UA Spec Desc Clean Catch (06/30/24 7:31 PM) Normal [facility] [place]A Auto SS Work Phone: eGFRon 06-30-2024 eGFR 110 mL/min/1.73 m2 Normal >=59 [facility] Comment on above: Performed By: #### 1 [id number] #### [facility] [address] [place] [address] Vital Signs Date Time Vital Sign Value Performing Clinician Facility 06-30-2024 22:12-0500 Diastolic blood pressure 84 mm[Hg] Porter Watkins [facility] 06-30-2024 22:12-0500 Heart rate 76 /min Porter June [facility] 06-30-2024 22:12-0500 Mean blood pressure 99 mm[Hg] Porter June [facility] 06-30-2024 22:12-0500 Respiratory rate 17 /min Porter June [facility] 06-30-2024 22:12-0500 SaO2% (BldA) [Mass fraction] 98 % Porter June [facility] 06-30-2024 22:12-0500 Systolic blood pressure 128 mm[Hg] Porter June [facility] 06-30-2024 21:40-0500 Diastolic blood pressure 79 mm[Hg] Porter June [facility] 06-30-2024 21:40-0500 Heart rate 74 /min Porter June [facility] 06-30-2024 21:40-0500 Mean blood pressure 94 mm[Hg] Porter June [facility] 06-30-2024 21:40-0500 Respiratory rate 18 /min Porter June [facility] 06-30-2024 21:40-0500 SaO2% (BldA) [Mass fraction] 96 % Porter June [facility] 06-30-2024 21:40-0500 Systolic blood pressure 123 mm[Hg] Porter [facility] [facility]24 20:42-0500 Diastolic blood pressure 81 mm[Hg] Porter June [facility] 06-30-2024 20:42-0500 Heart rate 80 /min Porter June [facility] 06-30-2024 20:42-0500 Mean blood pressure 99 mm[Hg] Porter June [facility] 06-30-2024 20:42-0500 Respiratory rate 18 /min Porter June [facility] 06-30-2024 20:42-0500 SaO2% (BldA) [Mass fraction] 97 % Porter June [facility] 06-30-2024 20:42-0500 Systolic blood pressure 135 mm[Hg] Porter June [facility] 06-30-2024 18:55-0500 Body temperature 97.7 [degF] Porter June [facility] 06-30-2024 18:55-0500 Heart rate 61 /min Porter Gasparner [facility] 09-23-2022 16:55-0500 Blood Pressure Location Marge Orzech [facility] 09-23-2022 16:55-0500 Body temperature 97.52 [degF] Marge Orzech [facility] 09-23-2022 16:55-0500 Diastolic blood pressure 86 mm[Hg] Marge Orzech [facility] 09-23-2022 16:55-0500 Heart rate 66 /min Marge Orzech [facility] 09-23-2022 16:55-0500 SaO2% (BldA) [Mass fraction] 97 % Marge Orzech [facility] 09-23-2022 16:55-0500 Systolic blood pressure 134 mm[Hg] Marge Orzech [facility] 04-10-2022 00:00-0400 Body temperature 98.6 [degF] Kaylinn Dokken [facility] 04-10-2022 00:00-0400 Diastolic blood pressure 88 mm[Hg] Kaylinn Dokken [facility] 04-10-2022 00:00-0400 Heart rate 68 /min Kaylinn Dokken [facility] 04-10-2022 00:00-0400 Mean blood pressure 109 mm[Hg] Kaylinn Dokken [facility] 04-10-2022 00:00-0400 Respiratory rate 17 /min Kaylinn Dokken [facility] 04-10-2022 00:00-0400 SaO2% (BldA) [Mass fraction] 98 % Kaylinn Dokken [facility] 04-10-2022 00:00-0400 Systolic blood pressure 150 mm[Hg] Kaylinn Dokken [facility] 04-09-2022 23:19-0400 Body temperature 98.24 [degF] Kaylinn Dokken [facility] 04-09-2022 23:19-0400 Diastolic blood pressure 100 mm[Hg] Kaylinn Dokken [facility] 04-09-2022 23:19-0400 Heart rate 70 /min Kaylinn Dokken [facility] 04-09-2022 23:19-0400 Respiratory rate 16 /min Kaylinn Dokken [facility] 04-09-2022 23:19-0400 SaO2% (BldA) [Mass fraction] 99 % Kaylinn Dokken [facility] 04-09-2022 23:19-0400 Systolic blood pressure 169 mm[Hg] Nataliiaping Bean [facility] Encounters Encounter Date Encounter Type Care Provider Facility Start: 07-05-2024 ambulatory Donnychase BERTRAND Facili ty:[id number] Start: 07-02-2024 End: 07-02-2024 ambulatory Donny BERTRAND Facility:[facility] Start: 06-30-2024 End: 06-30-2024 Emergency department patient visit Porter Arellano June [facility] Start: 09-23-2022 End: 09-23-2022 Patient encounter procedure Marge [employer] [facility] Start: 04-09-2022 End: 04-10-2022 Emergency department patient visit Lani Bean [facility] Procedures Date Procedure Procedure Detail Performing Clinician Right inguinal hernia (disorder) Nataliiasoumyaminaga Blancabasilio Immunizations Immunization Date Immunization Notes Care Provider Fa cili 05-30-2020 meningococcal ACWY vaccine, unspecified formulation Marge [employer] [facility] 05-30-2020 tetanus toxoid, reduced diphtheria toxoid, and acellular pertussis vaccine, adsorbed [employer] [facility] [facility] 11-10-2012 Diphtheria, tetanus toxoids and acellular pertussis vaccine, and poliovirus vaccine, inactivated [employer] [facility] [facility] 11-10-2012 hepatitis A vaccine, unspecified formulation [employer] [facility] 11-10-2012 measles, mumps, rubella, and varicella virus vaccine Marge Orzech [facility] 04-17-2009 DTaP, unspecified formulation Marge Orzech [facility] 04-17-2009 haemophilus influenz ae type b vaccine, PRP-T conjugate [employer] [facility] 04-17-2009 influenza virus vaccine, unspecified formulation Marge Orzech [facility] 12-17-2008 hepatitis A vaccine, adult dosage Marge Orzech [facility] 10-15-2008 DTaP, unspecified formulation Marge Orzech [facility] 10-15-2008 haemophilus influenz ae type b vaccine, PRP-T conjugate [employer] [facility] 10-15-2008 hepatitis B vaccine, pediatric or pediatric/adolescent dosage Marge Orzech [facility] 10-15-2008 measles, mumps and rubella virus vaccine Marge Orzech [facility] 10-15-2008 poliovirus vaccine, unspecified formulation Marge Orzech [facility] 10-15-2008 varicella virus vaccine Marge Orzech [facility] 04-16-2008 DTaP, unspecified formulation Marge Orzech [facility] 04-16-2008 haemophilus influenz ae type b vaccine, PRP-T conjugate [employer] [facility] 04-16-2008 poliovirus vaccine, unspecified formulation Marge Orzech [facility] 04-16-2008 rotavirus vaccine, unspecified formulation Marge Orzech [facility] 12-19-2007 haemophilus influenz ae type b vaccine, PRP-T conjugate [employer] [facility] 12-19-2007 rotavirus vaccine, unspecified formulation [facility] 10-14-2007 hepatitis B vaccine, pediatric or pediatric/adolescent dosage [employer] [facility] NEGATED: Highlighted row has not occurred!09-23-2022 influenza virus vaccine, unspecified formulation [facility] NEGATED: Highlighted row has not occurred!09-23-2022 SARS-CoV-2 mRNA (tozinameran 5y-11y) vaccine [facility] Payers Date Payer Category Payer Unknown [id number] 1985 Unknown [id number] 1985 Unknown [id number] 1985 Unknown [id number] Social History Date Type Detail Facility Start: 10-13-2021 End: 09-23-2022 Never smoked tobacco (finding) [facility] Male [facility] Tobacco smoking status Never [facility] Functional Status Date Assessment Result Facility 06-30-2024 Functional Status N/A [facility] 09-23-2022 Functional Status N/A [facility] 04-09-2022 N/A [facility] Clinical Note 07-02-2024 Note Date & Type Note Facility 07-02-2024 Note Patient Education Nephrology Laser Therapy for Kidney Stones, Care After After laser therapy for kidney stones, it is common to have: ??? Pain. ??? A burning feeling when you pee (urinate). ??? Small amounts of blood in your pee (urine). ??? A need to pee a lot. ??? Parts of the kidney stone in your pee. ??? Mild discomfort in your back when you pee. You may have this if you had a small mesh tube (stent) placed during the procedure. Follow these instructions at home: Medicines ??? Take eogm-tne-jdjfatm and prescription medicines only as told by your health care provider. ??? If you were prescribed antibiotics, take them as told by your provider. Do not stop using the antibiotic even if you start to feel better. ??? Ask your provider if the medicine prescribed to you: ? Requires you to avoid driving or using machinery. ? Can cause constipation. You may need to take these actions to prevent or treat constipation: ? Drink enough fluid to keep your pee pale yellow. ? Take wlta-ozt-fdlkwys or prescription medicines. ? Eat foods that are high in fiber, such as beans, whole grains, and fresh fruits and vegetables. ? Limit foods that are high in fat and processed sugars, such as fried or sweet foods. Activity ??? If you were given a sedative during the procedure, it can affect you for several hours. Do not drive or operate machinery until your provider says that it is safe. ??? Return to your normal activities as told by your provider. Ask your provider what activities are safe for you. General instructions ??? Your provider may recommend that you drink a lot of water for a few hours after your procedure. If you have heart or kidney disease, ask your provider how much you should drink. ??? You may be asked to strain your pee to collect any stone pieces that you pass. Your provider may have these pieces tested. ??? Do not take baths, swim, or use a hot tub until your provider approves. Ask your provider if you may take warm baths to soothe the burning. ??? Keep all follow-up visits. If you have a stent, you will need to go back to your provider to have it removed. Your provider may give you more instructions. Make sure you know what you can and cannot do. Contact a health care provider if: ??? You have pain or a burning feeling that lasts for more than 2 days. ??? You feel nauseous. ??? You vomit more and more often. ??? You have trouble peeing. ??? You have pain that gets worse or does not get better with medicine. ??? You have a fever or shaking chills. Get help right away if: ??? You cannot pee, even when your bladder feels full. ??? You faint. ??? You have chest pain, shortness of breath, or cough up blood. ??? You have: ? Bright red blood or blood clots in your pee. ? Severe pain or discomfort. ? Pain in your abdomen. ? Swelling in your legs. These symptoms may be an emergency. Get help right away. Call 911. ??? Do not wait to see if the symptoms will go away. ??? Do not drive yourself to the hospital. This information is not intended to replace advice given to you by your health care provider. Make sure you discuss any questions you have with your health care provider. Document Revised: 03/11/2023 Document Reviewed: 03/11/2023 [employer] Patient Education ? 2023 [employer]. Laser Therapy for Kidney Stones Laser therapy for kidney stones is a procedure to break up rock-like masses that form inside the kidneys (kidney stones). It is done using a device that beams a strong light (laser) on the kidney stones. This breaks the stones up into small pieces. These small pieces may leave your body when you pee (urinate) or may be taken out during the procedure. You may need laser therapy if you have kidney stones that are painful or that are stopping you from being able to pee. Tell a health care provider about: ??? Any allergies you have. ??? All medicines you are taking, including vitamins, herbs, eye drops, creams, and yfxb-kpu-etjzxmn medicines. ??? Any problems you or family members have had with anesthesia. ??? Any bleeding problems you have. ??? Any surgeries you have had. ??? Any medical conditions you have. ??? Whether you are or may be . What are the risks? Your health care provider will talk with you about risks. These may include: ??? Infection. ??? Bleeding. ??? Allergic reactions to medicines. ??? Damage to: ? The part of your body that drains pee (urine) from the bladder (urethra). ? The bladder. ? The tube that connects the bladder to the kidneys (ureter). ??? Urinary tract infection (UTI). ??? Urethral stricture. This is when the urethra is narrowed by scarring. ??? Trouble peeing. ??? Blockage of the kidney. This may be caused by a piece of kidney stone. What happens before the procedure? When to stop eating and drinking Follow instructions from your provider about what you may eat and drink. Thes (more content not included)... [facility] Hospital Discharge instructions 07-01-2024 Note Date & Type Note Facility 07-01-2024 Hospital Discharg e instructions Patient Education 06/30/2024 22:33:28 Kidney Stones Kidney Stones Kidney stones are solid, rock-like deposits that form inside of the kidneys. The kidneys are a pair of organs that make urine. A kidney stone may form in a kidney and move into other parts of the urinary tract, including the tubes that connect the kidneys to the bladder (ureters), the bladder, and the tube that carries urine out of the body (urethra). As the stone moves through these areas, it can cause intense pain and block the flow of urine. Kidney stones are created when high levels of certain minerals are found in the urine. The stones are usually passed out of the body through urination, but in some cases, medical treatment may be needed to remove them. What are the causes? Kidney stones may be caused by: A condition in which certain glands produce too much parathyroid hormone (primary hyperparathyroidism), which causes too much calcium buildup in the blood. A buildup of uric acid crystals in the bladder (hyperuricosuria). Uric acid is a chemical that the body produces when you eat certain foods. It usually leaves the body in the urine. Narrowing (stricture) of one or both of the ureters. A kidney blockage that is present at (congenital obstruction). Past surgery on the kidney or the ureters. What increases the risk? The following factors may make you more likely to develop this condition: Having had a kidney stone in the past. Having a family history of kidney stones. Not drinking enough water. Eating a diet that is high in protein, salt (sodium), or sugar. Being overweight or obese. What are the signs or symptoms? Symptoms of a kidney stone may include: Pain in the side of the abdomen, right below the ribs (flank pain). Pain usually spreads (radiates) to the groin. Needing to urinate often or urgently. Painful urination. Blood in the urine (hematuria). Nausea. Vomiting. Fever and chills. How is this diagnosed? This condition may be diagnosed based on: Your symptoms and medical history. A physical exam. Blood tests. Urine tests. These may be done before and after the stone passes out of your body through urination. Imaging tests, such as a CT scan, abdominal X-ray, or ultrasound. A procedure to examine the inside of the bladder (cystoscopy). How is this treated? Treatment for kidney stones depends on the size, location, and makeup of the stones. Kidney stones will often pass out of the body through urination. You may need to: Increase your fluid intake to help pass the stone. In some cases, you may be given fluids through an IV and may need to be monitored in the hospital. Take medicine for pain. Make changes in your diet to help prevent kidney stones from coming back. Sometimes, procedures are needed to remove a kidney stone. This may involve: A procedure to break up kidney stones using: ?A focused beam of light (laser therapy). ?Shock waves (extracorporeal shock wave lithotripsy). Surgery to remove kidney stones. This may be needed if you have severe pain or have stones that block your urinary tract. Follow these instructions at home: Medicines Take abwh-bsm-bnamxpu and prescription medicines only as told by your health care provider. Ask your health care provider if the medicine prescribed to you requires you to avoid driving or using heavy machinery. Eating and drinking Drink enough fluid to keep your urine pale yellow. You may be instructed to drink at least 8 10 glasses of water each day. This will help you pass the kidney stone. If directed, change your diet. This may include: ?Limiting how much sodium you eat. ?Eating more fruits and vegetables. ?Limiting how much animal protein you eat. Animal proteins include red meat, poultry, fish, and eggs. ?Eating a normal amount of calcium (1,000 1,300 mg per day). Follow instructions from your health care provider about eating or drinking restrictions. General instructions Collect urine samples as told by your health care provider. You may need to collect a urine sample: ?24 hours after you pass the stone. ?8 12 weeks after you pass the kidney stone, and every 6 12 months after that. Strain your urine every time you urinate, for as long as directed. Use the strainer that your health care provider recommends. Do not throw out the kidney stone after passing it. Keep the stone so it can be tested by your health care provider. Testing the makeup of your kidney stone may help prevent you from getting kidney stones in the future. Keep all follow-up visits. You may need follow-up X-rays or ultrasounds to make sure that your stone has passed. How is this prevented? To prevent another kidney stone: Drink enough fluid to keep your urine pale yellow. This is the best way to prevent kidney stones. Eat a healthy diet. Follow recommendations from your health care provider about foods to avoid. Recommendations vary depending on the type of kidney stone that you have. You may be instructed to eat a low-protein diet. Maintain a healthy weight. Where to find more information National Kidney Foundation (NKF): www.kidney.org U[employer] Foundation (UCF): www.urologyhealth.org Contact a health care provider if: You have pain that gets worse or does not get better with medicine. Get help right away if: You have a fever or chills. You develop severe pain. You develop new abdominal pain. You faint. You are unable to urinate. Summary Kidney stones are solid, rock-like deposits that form inside of the kidneys. Kidney stones can cause nausea, vomiting, blood in the urine, abdominal pain, and the urge to urinate often. Treatment for kidney stones depends on the size, location, and makeup of the stones. Kidney stones will often pass out of the body through urination. Kidney stones can be prevented by drinking enough fluids, eating a healthy diet, and maintaining a healthy weight. This information is not intended to replace advice given to you by your health care provider. Make sure you discuss any questions you have with your health care provider. Document Revised: 10/20/2022 Document Reviewed: 10/20/2022 [employer] Patient Education 2023 [employer]. Follow Up Care 06/30/2024 18:48:44 With:Donny BERTRAND Address: [address] [address]- Business (1) [facility] [address] [place] [address]- Business (1) When: Unknown Comments:Call for diagnosis based follow up With:Nitin PAYNE Address: [address] [place] [address], [place] [address]- Business (1) When:Within 3 Day(s) [facility] Clinical Note 06-30-2024 Note Date & Type Note Facility 06-30-2024 Note ED Patient Education Note Urology Kidney Stones Kidney stones are solid, rock-like deposits that form inside of the kidneys. The kidneys are a pair of organs that make urine. A kidney stone may form in a kidney and move into other parts of the urinary tract, including the tubes that connect the kidneys to the bladder (ureters), the bladder, and the tube that carries urine out of the body (urethra). As the stone moves through these areas, it can cause intense pain and block the flow of urine. Kidney stones are created when high levels of certain minerals are found in the urine. The stones are usually passed out of the body through urination, but in some cases, medical treatment may be needed to remove them. What are the causes? Kidney stones may be caused by: ??? A condition in which certain glands produce too much parathyroid hormone (primary hyperparathyroidism), which causes too much calcium buildup in the blood. ??? A buildup of uric acid crystals in the bladder (hyperuricosuria). Uric acid is a chemical that the body produces when you eat certain foods. It usually leaves the body in the urine. ??? Narrowing (stricture) of one or both of the ureters. ??? A kidney blockage that is present at (congenital obstruction). ??? Past surgery on the kidney or the ureters. What increases the risk? The following factors may make you more likely to develop this condition: ??? Having had a kidney stone in the past. ??? Having a family history of kidney stones. ??? Not drinking enough water. ??? Eating a diet that is high in protein, salt (sodium), or sugar. ??? Being overweight or obese. What are the signs or symptoms? Symptoms of a kidney stone may include: ??? Pain in the side of the abdomen, right below the ribs (flank pain). Pain usually spreads (radiates) to the groin. ??? Needing to urinate often or urgently. ??? Painful urination. ??? Blood in the urine (hematuria). ??? Nausea. ??? Vomiting. ??? Fever and chills. How is this diagnosed? This condition may be diagnosed based on: ??? Your symptoms and medical history. ??? A physical exam. ??? Blood tests. ??? Urine tests. These may be done before and after the stone passes out of your body through urination. ??? Imaging tests, such as a CT scan, abdominal X-ray, or ultrasound. ??? A procedure to examine the inside of the bladder (cystoscopy). How is this treated? Treatment for kidney stones depends on the size, location, and makeup of the stones. Kidney stones will often pass out of the body through urination. You may need to: ??? Increase your fluid intake to help pass the stone. In some cases, you may be given fluids through an IV and may need to be monitored in the hospital. ??? Take medicine for pain. ??? Make changes in your diet to help prevent kidney stones from coming back. Sometimes, procedures are needed to remove a kidney stone. This may involve: ??? A procedure to break up kidney stones using: ? A focused beam of light (laser therapy). ? Shock waves (extracorporeal shock wave lithotripsy). ??? Surgery to remove kidney stones. This may be needed if you have severe pain or have stones that block your urinary tract. Follow these instructions at home: Medicines ??? Take lgkm-jdq-ievewta and prescription medicines only as told by your health care provider. ??? Ask your health care provider if the medicine prescribed to you requires you to avoid driving or using heavy machinery. Eating and drinking ??? Drink enough fluid to keep your urine pale yellow. You may be instructed to drink at least 8?10 glasses of water each day. This will help you pass the kidney stone. ??? If directed, change your diet. This may include: ? Limiting how much sodium you eat. ? Eating more fruits and vegetables. ? Limiting how much animal protein you eat. Animal proteins include red meat, poultry, fish, and eggs. ? Eating a normal amount of calcium (1,000?1,300 mg per day). ??? Follow instructions from your health care provider about eating or drinking restrictions. General instructions ??? Collect urine samples as told by your health care provider. You may need to collect a urine sample: ? 24 hours after you pass the stone. ? 8?12 weeks after you pass the kidney stone, and every 6?12 months after that. ??? Strain your urine every time you urinate, for as long as directed. Use the strainer that your health care provider recommends. ??? Do not throw out the kidney stone after passing it. Keep the stone so it can be tested by your health care provider. Testing the makeup of your kidney stone may help prevent you from getting kidney stones in the future. ??? Keep all follow-up visits. You may need follow-up X-rays or ultrasounds to make sure that your stone has passed. How is this prevented? To prevent another kidney stone: ??? Drink enough fluid to keep your urine pale yel (more content not included)... [facility] Evaluation + Plan note 06-30-2024 Note Date & Type Note Facility 06-30-2024 Evaluation + Plan note Extrac jayshree from: Title:ED Note Author:Porter Watkins DO Date :06/30/24 Ureterolithiasis (N20.1: Antonio culus of ureter) Orders: ketorolac, 15 mg = 1 mL, Injection, IV Push, Once, Stop date 06/30/24 19:40:00 EST, STAT, Start date 06/30/24 19:40:00 EST, 06/30/24 19:40:00 EST naproxen, 500 mg = 1 tab(s), Oral, BID, PRN Pain, X 7 day(s), # 14 tab(s), Refills(s) 0, Pharmacy: [facility], 184, cm, 06/30/24 19:00:00 EST, Height/Length Dosing, 100.8, kg, 06/30/24 19:00:00 EST, Weight Dosing ondansetron, 4 mg = 2 mL, Injection, IV Push, Once, Stop date 06/30/24 19:40:00 EST, STAT, Start date 06/30/24 19:40:00 EST, 06/30/24 19:40:00 EST ondansetron, 4 mg = 1 tab(s), Oral, q8hr, PRN Nausea/Vomiting, # 12 tab(s), Refills(s) 0, Pharmacy: [facility], 184, cm, 06/30/24 19:00:00 EST, Height/Length Dosing, 100.8, kg, 06/30/24 19:00:00 EST, Weight Dosing tamsulosin, 0.4 mg = 1 cap(s), Oral, Daily, # 10 cap(s), Refills(s) 0, Pharmacy: [facility], 184, cm, 06/30/24 19:00:00 EST, Height/Length Dosing, 100.8, kg, 06/30/24 19:00:00 EST, Weight Dosing Basic Metabolic Panel CBC w/ Auto Diff CT Abdomen/Pelvis w/o Contrast eGFR Hepatic Function Panel Lipase Level Saline Lock Insert UA with Cult Rflx [facility] Hospital Discharge instructions 09-23-2022 Note Date & Type Note Facility 09-23-2022 Hospital Discharg e instructions Patient Education 09/23/2022 17:19:44 Dental Abscess Dental Abscess A dental abscess is a collection of pus in or around a tooth that results from an infection. An abscess can cause pain in the affected area as well as other symptoms. Treatment is important to help with symptoms and to prevent the infection from spreading. What are the causes? This condition is caused by a bacterial infection around the root of the tooth that involves the inner part of the tooth (pulp). It may result from: Severe tooth decay. Trauma to the tooth, such as a broken or chipped tooth, that allows bacteria to enter into the pulp. Severe gum disease around a tooth. What increases the risk? This condition is more likely to develop in males. It is also more likely to develop in people who: Have dental decay (cavities). Eat sugary snacks between meals. Use tobacco products. Have diabetes. Have a weakened disease-fighting system (immune system). Do not brush and care for their teeth regularly. What are the signs or symptoms? Symptoms of this condition include: Severe pain in and around the infected tooth. Swelling and redness around the infected tooth, in the mouth, or in the face. Tenderness. Pus drainage. Bad breath. Bitter taste in the mouth. Difficulty swallowing. Difficulty opening the mouth. Nausea. Vomiting. Chills. Swollen neck glands. Fever. How is this diagnosed? This condition is diagnosed based on: Your symptoms and your medical and dental history. An examination of the infected tooth. During the exam, your dentist may tap on the infected tooth. You may also have X-rays of the affected area. How is this treated? This condition is treated by getting rid of the infection. This may be done with: Incision and drainage. This procedure is done by making an incision in the abscess to drain out the pus. Removing pus is the first priority in treating an abscess. Antibiotic medicines. These may be used in certain situations. Antibacterial mouth rinse. A root canal. This may be performed to save the tooth. Your dentist accesses the visible part of your tooth (crown) with a drill and removes any damaged pulp. Then the space is filled and sealed off. Tooth extraction. The tooth is pulled out if it cannot be saved by other treatment. You may also receive treatment for pain, such as: Acetaminophen or NSAIDs. Gels that contain a numbing medicine. An injection to block the pain near your nerve. Follow these instructions at home: Medicines Take wnmp-vxe-yvlqhfx and prescription medicines only as told by your dentist. If you were prescribed an antibiotic, take it as told by your dentist. Do not stop taking the antibiotic even if you start to feel better. If you were prescribed a gel that contains a numbing medicine, use it exactly as told in the directions. Do not use these gels for children who are younger than 2 years of age. Do not drive or use heavy machinery while taking prescription pain medicine. General instructions Rinse out your mouth often with salt water to relieve pain or swelling. To make a salt-water mixture, completely dissolve 1 tsp of salt in 1 cup of warm water. Eat a soft diet while your abscess is healing. Drink enough fluid to keep your urine pale yellow. Do not apply heat to the outside of your mouth. Do not use any products that contain nicotine or tobacco, such as cigarettes and e-cigarettes. If you need help quitting, ask your health care provider. Keep all follow-up visits as told by your dentist. This is important. How is this prevented? Elk your teeth every morning and night with fluoride toothpaste. Floss one time each day. Get regularly scheduled dental cleanings. Consider having a dental sealant applied on teeth that have deep holes (caries). Drink fluoridated water regularly. This includes most tap water. Check the label on bottled water to see if it contains fluoride. Drink water instead of sugary drinks. Eat healthy meals and snacks. Wear a mouth guard or face shield to protect your teeth while playing sports. Contact a health care provider if: Your pain is worse and is not helped by medicine. Get help right away if: You have a fever or chills. Your symptoms suddenly get worse. You have a very bad headache. You have problems breathing or swallowing. You have trouble opening your mouth. You have swelling in your neck or around your eye. Summary A dental abscess is a collection of pus in or around a tooth that results from an infection. A dental abscess may result from severe tooth decay, trauma to the tooth, or severe gum disease around a tooth. Symptoms include severe pain, swelling, redness, and drainage of pus in and around the infected tooth. The first priority in treating a dental abscess is to drain out the pus. Treatment may also involve removing damage inside the tooth (root canal) or pulling out (extracting) the tooth. This information is not intended to replace advice given to you by your health care provider. Make sure you discuss any questions you have with your health care provider. Document Released: 07/11/2006 Document Revised: 06/23/2018 Document Reviewed: 03/13/2018 [employer] Patient Education 2020 [employer]. 09/23/2022 17:19:42 BMI for Adults BMI for Adults Body mass index (BMI) is a number that is calculated from a person's weight and height. BMI may help to estimate how much of a person's weight is composed of fat. BMI can help identify those who may be at higher risk for certain medical problems. How is BMI used with adults? BMI is used as a screening tool to identify possible weight problems. It is used to check whether a person is obese, overweight, healthy weight, or underweight. How is BMI calculated? BMI measures your weight and compares it to your height. This can be done either in [place] or metric measurements. Note that charts are available to help you find your BMI quickly and easily without having to do these calculations yourself. To calculate your BMI in [place] measurements, your health care provider will: 1.Measure your weight in pounds (lb). 2.Multiply the number of pounds by 703. For example, for a person who weighs 180 lb, multiply that number by 703, which equals 126,540. 3.Measure your height in inches (in). Then multiply that number by itself to get a measurement called inches squared. For example, for a person who is 70 in tall, the inches squared measurement is 70 in x 70 in, which equals 4900 inches squared. 4.Divide the total from Step 2 (number of lb x 703) by the total from Step 3 (inches squared): 126,540 4900 = 25.8. This is your BMI. To calculate your BMI in metric measurements, your health care provider will: 1.Measure your weight in kilograms (kg). 2.Measure your height in meters (m). Then multiply that number by itself to get a measurement called meters squared. For example, for a person who is 1.75 m tall, the meters squared measurement is 1.75 m x 1.75 m, which is equal to 3.1 meters squared. 3.Divide the number of kilograms (your weight) by the meters squared number. In this example: 70 3.1 = 22.6. This is your BMI. How is BMI interpreted? To interpret your results, your health care provider will use BMI charts to identify whether you are underweight, normal weight, overweight, or obese. The following guidelines will be used: Underweight: BMI less than 18.5. Normal weight: BMI between 18.5 and 24.9. Overweight: BMI between 25 and 29.9. Obese: BMI of 30 and above. Please note: Weight includes both fat and muscle, so someone with a muscular build, such as an athlete, may have a BMI that is higher than 24.9. In cases like these, BMI is not an accurate measure of body fat. To determine if excess body fat is the cause of a BMI of 25 or higher, further assessments may need to be done by a health care provider. BMI is usually interpreted in the same way for men and women. Why is BMI a useful tool? BMI is useful in two ways: Identifying a weight problem that may be related to a medical condition, or that may increase the risk for medical problems. Promoting lifestyle and diet changes in order to reach a healthy weight. Summary Body mass index (BMI) is a number that is calculated from a person's weight and height. BMI may help to estimate how much of a person's weight is composed of fat. BMI can help identify those who may be at higher risk for certain medical problems. BMI can be measured using [place] measurements or metric measurements. To interpret your results, your health care provider will use BMI charts to identify whether you are underweight, normal weight, overweight, or obese. This information is not intended to replace advice given to you by your health care provider. Make sure you discuss any questions you have with your health care provider. Document Released: 03/22/2005 Document Revised: 06/23/2018 Document Reviewed: 05/24/2018 [employer] Patient Education 2020 [employer] Follow Up Care 09/23/2022 16:30:49 With:KERRY HADLEY, ALEJANDRO Taveras Address: [address] [place] [phone] When: Unknown [facility] Discharge instructions 04-10-2022 Note Date & Type Note Facility 04-10-2022 Hospital Discharg e instructions Patient Education 04/10/2022 00:10:35 Dental Pain Dental Pain Dental pain may be caused by many things, including: Tooth decay (cavities or caries). Cavities expose the nerve of your tooth to air and to hot or cold temperatures. This can cause pain or discomfort. Abscess or infection. A dental abscess is a collection of pus from a bacterial infection in the inner part of the tooth (pulp). It usually occurs at the end of the root of a tooth. Injury. An unknown reason (idiopathic). Your pain may be mild or severe. It may occur when you are: Chewing. Exposed to hot or cold temperatures. Eating or drinking sugary foods or beverages, such as soda or candy. Your pain may be constant, or it may come and go without cause. Follow these instructions at home: Watch your dental pain for any changes. The following actions may help to lessen any discomfort that you are feeling: Medicines Take xtuh-ogc-khepczp and prescription medicines only as told by your health care provider. If you were prescribed an antibiotic medicine, take it as told by your health care provider. Do not stop taking the antibiotic even if you start to feel better. Eating and drinking Avoid foods or drinks that cause you pain, such as: ?Very hot or very cold foods or drinks. ?Sweet or sugary foods or drinks. Managing pain and swelling Apply ice to the painful area of your face: ?Put ice in a plastic bag. ?Place a towel between your skin and the bag. ?Leave the ice on for 20 minutes, 2 3 times a day. Brushing your teeth To keep your mouth and gums healthy, use fluoride toothpaste to brush your teeth twice a day. Floss once a day. Use a toothpaste made for sensitive teeth if directed by your health care provider. Elk your teeth with a soft-bristled toothbrush. General instructions Do not apply heat to the outside of your face. Gargle with a salt-water mixture 3 4 times a day or as needed. To make a salt-water mixture, completely dissolve 1 tsp of salt in 1 cup of warm water. Keep all follow-up visits as told by your health care provider. This is important. Apply ice to the outside of your jaw if there is swelling. Do not put ice directly on the skin. Contact a health care provider if: Your pain is not controlled with medicines. Your symptoms get worse. You have new symptoms. Get help right away if you: Are unable to open your mouth. Are having trouble breathing or swallowing. Have a fever. Notice that your face, neck, or jaw is swollen. Summary Dental pain may be caused by many things, including tooth decay and infection. Your pain may be mild or severe. Take mgis-dsh-axzmxlh and prescription medicines only as told by your health care provider. Watch your dental pain for any changes. Let your health care provider know if symptoms get worse. This information is not intended to replace advice given to you by your health care provider. Make sure you discuss any questions you have with your health care provider. Document Released: 07/11/2006 Document Revised: 11/06/2019 Document Reviewed: 06/01/2018 [employer] Patient Education 2020 [employer] Follow Up Care 04/09/2022 23:15:32 With:Dental: [facility] [phone] Address:Unknown When:04/12/2022 With:Dental: [facility] [phone] Address:Unknown When:04/12/2022 With:Dental: [facility] [phone] Address:Unknown When:04/12/2022 With:Nitinisma PAYNE Address: [address] [place] [phone] Business (1) When:Within 3 Day(s) [facility] Evaluation + Plan note 04-09-2022 Note Date & Type Note Facility 04-09-2022 Evaluation + Plan note Extrac jayshree from: Title:ED Note Author:Beto Petty PA-C te:04/09/22 Pain, dental (K08.89: Other specified disorders of teeth and supporting structures) Orders: benzocaine topical, 1 linda, Gel, Topical, QID, STAT, Start date 04/09/22 23:29:00 EDT clindamycin, 300 mg = 1 cap(s), Oral, TID, X 7 day(s), # 21 cap(s), Refills(s) 0, Pharmacy: [facility], 186, cm, 04/09/22 23:21:00 EDT, Height/Length Dosing, 102.3, kg, 04/09/22 23:21:00 EDT, Weight Dosing clindamycin, 300 mg = 2 cap(s), Cap, Oral, Once, Stop date 04/09/22 23:28:00 EDT, STAT, Start date 04/09/22 23:28:00 EDT, 04/09/22 23:28:00 EDT ketorolac, 60 mg = 2 mL, Injection, IntraMuscular, Once, Stop date 04/09/22 23:29:00 EDT, STAT, Start date 04/09/22 23:29:00 EDT, 04/09/22 23:29:00 EDT lidocaine topical, 200 mg, 10 mL, Soln-Oral, Oral, Once, Stop date 04/09/22 23:29:00 EDT, STAT, Start date 04/09/22 23:29:00 EDT naproxen, 500 mg = 1 tab(s), Oral, BID, PRN for pain, # 20 tab(s), Refills(s) 0, Pharmacy: [facility], 186, cm, 04/09/22 23:21:00 EDT, Height/Length Dosing, 102.3, kg, 04/09/22 23:21:00 EDT, Weight Dosing [facility] Hospital course Narrative Note Date & Type Note Facility Hospital course Narrative No data available for this section [facility] Progress note Note Date & Type Note Facility Progress note No data available for this section [facility] Summary Purpose Family History No Family History Records Found Advance Directives No Advanced Directives Records FoundNo Advanced Directives Records FoundNo Advanced Directives Records FoundNo Advanced Directives Records FoundNo Advanced Directives Records FoundNo Advanced Directives Records FoundNo Advanced Directives Records Found Additional Source Comments Care Team (unrecognized sect ion and content) Personnel Name: Nitin PAYNE MD Address: [address] [place] [address] Personnel Name: Nitin PAYNE MD Address: Address: [address] [place] [address] Personnel Name: Nitin PAYNE MD Address: Address: [address] [place] [address] (unrecognized sect ion and content) No Status Records FoundNo Status Records FoundNo Status Records FoundNo Status Records FoundNo Status Records FoundNo Status Records FoundNo Status Records Found INFORMATION SOURCE (unrecogn ized section and content) DATE CREATED AUTHOR 07/04/2024 [facility] FOR RECORDS PERTAINING TO PATIENTS WHO ARE OR HAVE BEEN ENROLLED IN A CHEMICAL DEPENDENCY/SUBSTANCEABUSE PROGRAM, SOME INFORMATION MAY BE OMITTED. This clinical summary was aggregated from multiple sources. Caution should be exercised in using it in the provision of clinical care. This summary normalizes information from multiple sources, and as a consequence, information in this document may materially change the coding, format and clinical context of patient data. In addition, data may be omitted in some cases. CLINICAL DECISIONS SHOULD BE BASED ON THE PRIMARY CLINICAL RECORDS. [email or web address] provides no warranty or guarantee of the accuracy or completeness of information in this document.
[2024-07-05 11:06] VITALS: BP 144/87; PULSE 65; TEMP 36.5; O2SAT 97; BMI 29.1
[2024-07-05] MEDS: LACTATED RINGER'S SOLUTION 1,000 ML 50 ML IV (11:39)
== END 2024-07-05 14:55 | disposition home or self-care (01) ==
LOC: SURGOUT 10:34
PROVIDERS: Visit Provider Urology
DX: N20.1 Calculus of ureter (principal); Z53.8 Procedure and treatment not carried out for other reasons
CPT/HCPCS: 50590; 36415; 74018

== ENCOUNTER 2024-07-31 12:46 | Outpatient (OUT) | payer OTHER, SELFPAY | END 2024-07-31 12:47 | disposition home or self-care (01) | LOC: PST 12:46 | PROVIDERS: Visit Provider Urology | DX: N20.1 Calculus of ureter (principal) ==

== ENCOUNTER 2024-08-02 09:33 | Day surgery (SDC) | payer OTHER, SELFPAY ==
[2024-08-02] VITALS (12 sets, daily range): BP systolic 111–133; BP diastolic 72–97; PULSE 53–69; TEMP 36.4–36.7; O2SAT 97–100; BMI 29.5
--- NOTE | 2024-08-02 09:45 | XR_ITS ---
The [address] [address] Patient Name: PILLO COLLINS MRN: [id number] date: 1985 Sex: M Assigned Patient Location: [facility] Current Patient Location: Accession/Order Number: [id number] Exam Date: 08/02/2024 09:40 Report Date: 08/02/2024 13:26 At the request of: ELVIRA CUNNINGHAM Procedure: XR abdomen 1V EXAMINATION: XR abdomen 1V HISTORY: KIDNEY STONES COMPARISON: 07/05/2024 FINDINGS: KIDNEY/URETER - RIGHT: Multiple nephroliths. 9 mm calcification projects over the right L3 transverse process likely in the proximal ureter, stable KIDNEY/URETER - LEFT: 3 mm nephrolith lower pole PELVIS: No visible ureteral calcifications. Any visible calcifications favor phleboliths. BOWEL: No abnormal dilation or deviation. BONES: No acute abnormality. Dextrocurvature OTHER: Negative. No abnormal gaseous collections. XR/XR abdomen 1V IMPRESSION: Stable bilateral nephrolithiasis with suspected right ureterolith Electronically authenticated by: ANDRE MCCABE Date: 08/02/2024 13:26
[2024-08-02] MEDS: LACTATED RINGER'S SOLUTION 1,000 ML 50 ML IV ×2 (10:19→11:50)
[2024-08-02] MEDS: CIPROFLOXACIN 400 MG/200 ML D5W PREMIX 200 MG IV (10:41)
--- NOTE | 2024-08-02 11:15 | PM.URSON ---
Urology Surgery Operative Note Operative Note Procedure Date: 08/02/24 Time Out Performed: yes Pre-op Diagnosis: Right ureteral lithiasis Post-op Diagnosis: same as pre-op Procedures performed: 1. Right ESWL. Anesthesia: General-LMA Primary Surgeon: Donny Bertrand Complications: None none Estimated blood loss (mL): 0 Findings: 8 to 9 mm right proximal ureteral calculus Specimens: None Drains: None Indications for Procedures: This gentleman has a 8 to 9 mm right proximal ureteral calculus. He now presents for right ESWL and possible ureteroscopic stone manipulation and stent placement. He has signed an informed consent after risks were explained. Some of these risks include bleeding, perinephric hematoma, infection and anesthesia to name a few. Detailed description of Procedure: The patient was brought to the Operating Room and placed on Siemens electromagnetic lithotripsy treatment table in the supine position. SCDs were placed on their lower extremities and turned on and functioning during the entire case. Timeout was done by all parties in the room. We all agreed upon the patient's identification and the planned procedures for this patient. General Anesthesia was then administered via LMA. Treatment head was then brought to the patient's correct side. While using flourscopy the stone was identified and lined up into the crosshairs. We then began applying shocks. We started at a power level 2.0 and increased to a maximum power level of 3.5. Intermittent fluoroscopy revealed that within the first 200 shocks we began to see clear fragmentation. Fragmentation continued as the shocks continued. We applied a total of 3000 shocks to this right sided stone. Our last fluoroscopic image revealed no evidence of any formed stone remaining. The procedure was then terminated. He was then transferred to a [facility] bed and wheeled to PACU in stable condition.
--- NOTE | 2024-08-02 11:37 | PC.NURSE ---
1125- Patient opens eyes to name. I-gel removed.
== END 2024-08-02 13:13 | disposition home or self-care (01) ==
PROVIDERS: Visit Provider Urology
PROC: (CPT 873; principal; 2024-08-02 11:00)
DX: N20.1 Calculus of ureter (principal); Z87.891 Personal history of nicotine dependence
CPT/HCPCS: 00873; 50590; 74018; J0744; J1100; J1885; J2250; J2405; J2704; J3010